=== PATIENT | female | born 1980 | race Caucasian/White ===

== ENCOUNTER 2024-11-29 14:36 | Emergency (ER) | payer MEDICAID ==
[~2024-11-29] VITALS: Ht 162.6 cm; Wt 85.0 kg
[2024-11-29 14:43] VITALS: O2SAT 100
[2024-11-29 15:03] LABS: BASOPHILS % 0.4 % (0.0-2.0); EOSINOPHILS % 2.9 % (0.0-5.0); HEMATOCRIT. 44.7 % (36.0-48.0); HEMOGLOBIN. 14.7 g/dL (12.0-16.0); LYMPHOCYTES % 36.2 % (20.0-50.0); MEAN CORPUSCULAR HEMOGLOBIN 28.5 pg (28.0-32.0); MEAN CORPUSCULAR HGB CONC 32.9 g/dL (31.0-37.0); MEAN CORPUSCULAR VOLUME 86.8 fL (81.0-99.0); MEAN PLATELET VOLUME 8.2 fl (7.4-10.4); MONOCYTES % 5.2 % (2.0-8.0); NEUTROPHILS % 55.3 % (40.0-76.0); PLATELET 240 x1000/uL (130-400); RED BLOOD CELL COUNT 5.15 mill/uL (4.2-5.4); RED CELL DISTRIBUTION WIDTH 13.8 % (11.6-14.6); WHITE BLOOD COUNT 9.3 x1000/uL (4.5-11.0)
[2024-11-29 15:10] LABS: CHLORIDE 105 mEq/L (98-107); POTASSIUM 3.8 mEq/L (3.5-5.1); SODIUM 139 mEq/L (136-145)
[2024-11-29 15:11] LABS: CARBON DIOXIDE 28 mEq/L (21-32)
[2024-11-29 15:12] LABS: CALCIUM 9.2 mg/dL (8.7-10.4)
[2024-11-29 15:16] LABS: CREATININE 0.8 mg/dL (0.6-1.0); GLUCOSE 109 mg/dL (70-105)
[2024-11-29 15:17] LABS: UREA NITROGEN BLOOD 16 mg/dL (9-23)
[2024-11-29 15:25] LABS: HCG SCREEN NEGATIVE
[2024-11-29 15:30] LABS: TROPONIN I HIGH SENSITIVITY < 4 ng/L (3.0-34)
[2024-11-29] MEDS ORDERED: IBUP-2029 MT (15:47)
[2024-11-29 16:22] VITALS: BP 139/67; PULSE 87; RESP 15; TEMP 36.7; O2SAT 100
== END 2024-11-29 16:23 | disposition home or self-care (01) ==
LOC: ER 14:36
DX: R09.1 Pleurisy (principal); Z90.49 Acquired absence of other specified parts of digestive tract
CPT/HCPCS: 36415; 71045; 80048; 84484; 84703; 85025; 93005; 99285